=== PATIENT | female | born 1995 | race Caucasian/White ===

== ENCOUNTER → 2018-09-16 | Outpatient (REF) | payer OTHER | LOC: M SMT 13:20 | DX: N12 Tubulo-interstitial nephritis, not specified as acute or chronic (principal) | CPT/HCPCS: 87086 ==

== ENCOUNTER 2024-11-15 12:42 | Inpatient (IN) | payer MEDICAID, OTHER ==
[~2024-11-15] VITALS: Ht 157.5 cm; Wt 85.0 kg
[2024-11-15] MEDS ORDERED: ALBU8.5H INH (13:01)
[2024-11-15] MEDS ORDERED: DULO1CAP6 PO (13:01)
[2024-11-15 13:30] LABS: HEMATOCRIT 42.8 % (36.0-47.0); HEMOGLOBIN 13.8 g/dl (12.0-15.5); MEAN CORPUSCULAR HEMOGLOBIN 27.3 pg (27.0-33.0); MEAN CORPUSCULAR HGB CONC 32.2 g/dl (32.0-36.5); MEAN CORPUSCULAR VOLUME 84.6 fl (80.0-96.0); PLATELET COUNT, AUTOMATED 319 10^3/uL (150-450); RED BLOOD COUNT 5.06 10^6/uL (4.00-5.40); WHITE BLOOD COUNT 10.5 10^3/uL (4.0-10.0)
[2024-11-15 13:54] LABS: AMPHETAMINES LEVEL URINE NEGATIVE (NEGATIVE); BARBITURATES URINE NEGATIVE (NEGATIVE); BENZODIAZEPINES URINE NEGATIVE (NEGATIVE); COCAINE METABOLITE URINE NEGATIVE (NEGATIVE); METHADONE URINE NEGATIVE (NEGATIVE); OPIATES URINE NEGATIVE (NEGATIVE); PHENCYCLIDINE URINE NEGATIVE (NEGATIVE)
[2024-11-15 13:57] LABS: ETHYL ALCOHOL (ETHANOL) 0.007 % (0.000-0.010)
[2024-11-15 13:58] LABS: SALICYLATE LEVEL < 3.0 MG/DL (<30)
[2024-11-15 13:59] LABS: ALBUMIN 4.3 G/DL (3.2-5.2); ALKALINE PHOSPHATASE 81 U/L (35-104); ALT/SGPT 13 U/L (7.0-40); AST/SGOT 13 U/L (<34); BILIRUBIN,DIRECT 0.2 MG/DL (<0.4); BILIRUBIN,TOTAL 0.5 MG/DL (0.3-1.2); BLOOD UREA NITROGEN 9 MG/DL (9-23); CARBON DIOXIDE LEVEL 26 MMOL/L (20-31); CHLORIDE LEVEL 105 MMOL/L (98-107); CREATININE FOR GFR 0.74 MG/DL (0.55-1.30); GLOMERULAR FILTRATION RATE > 60.0 (>60); GLUCOSE, FASTING 148 MG/DL (60-100); POTASSIUM SERUM 3.8 MMOL/L (3.5-5.1); SODIUM LEVEL 140 MMOL/L (136-145); TOTAL PROTEIN 8.2 G/DL (5.7-8.2)
[2024-11-15 14:00] LABS: CANNABINOIDS URINE POSITIVE (NEGATIVE)
[2024-11-15] MEDS: LORazepam 1 MG TAB PO ONE (14:31)
[2024-11-15 15:00] LABS: KETONE, URINE AUTO RFX NEGATIVE (NEGATIVE); LEUKOCYTE ESTERASE UR AUTO RFX 3+ (NEGATIVE); MUCUS, URINE RFX SMALL (NEGATIVE); NITRITE, URINE AUTO RFX NEGATIVE (NEGATIVE); RBC, URINE AUTO RFX 5 /HPF (0-3); SQUAM EPITHELIAL CELL UR AURFX 1 /HPF (0-6)
[2024-11-15] MEDS ORDERED: HOME MED LIST COMPLETE! XX SCH (15:10)
[2024-11-15 16:04] LABS: BASO % 0.2 % (0.0-1.0); EOS % 0.4 % (0.0-3.0); LYMPH % 19.2 % (24.0-44.0); MONO # 0.6 10^3/uL (0.0-0.8); MONO % 5.2 % (2.0-8.0); NEUTROPHILS % 74.7 % (36.0-66.0)
[2024-11-15] MEDS: LABETALOL 100MG TAB PO ONE (16:28)
[2024-11-15] MEDS ORDERED: ACETAMINOPHEN 325 MG TAB PO PRN (17:45)
[2024-11-15] MEDS ORDERED: MAALOX 30 ML SUSP *UDC PO PRN (17:45)
[2024-11-15] MEDS ORDERED: MOM 30ML SUSPENSION UDC PO PRN (17:45)
[2024-11-15] MEDS ORDERED: IBUPROFEN 400MG TAB PO PRN (17:45)
[2024-11-15] MEDS: FOSFOMYCIN TROMETHAMINE 3 GM POWDER PACKET (MONUROL) PO ONE (18:17)
[2024-11-15 21:06] VITALS: BP 137/89; TEMP 97.8; O2SAT 98
[2024-11-16 06:33] VITALS: BP 128/90; TEMP 97.8; O2SAT 96
[2024-11-16] MEDS: NICOTINE 7 MG/24 HR TRANSDERMAL TD ONE (09:55)
[2024-11-16] MEDS: LORazepam 0.5 MG TAB PO ONE (09:55)
[2024-11-16] MEDS: CEFDINIR 300 MG CAP (OMNICEF) PO SCH (11:23)
[2024-11-16 15:16] VITALS: BP 170/118; TEMP 97.6; O2SAT 99
[2024-11-16] MEDS: DIVALPROEX 125 MG TAB PO ONE (15:38)
[2024-11-16] MEDS: LORazepam 1 MG TAB PO STA (15:38)
[2024-11-16] MEDS ORDERED: **hydrALAZINE** 10 MG TAB PO PRN (17:50)
[2024-11-16] MEDS: LOSARTAN 25 MG TAB PO SCH (18:18)
[2024-11-16 18:19] VITALS: BP 150/102
[2024-11-16] MEDS: traZODone 50 MG TAB PO PRN (20:55)
[2024-11-16 22:09] VITALS: BP 143/96
[2024-11-17 06:33] VITALS: BP 127/81; TEMP 98.5; O2SAT 99
[2024-11-17 08:50] VITALS: BP 130/88
[2024-11-17] MEDS: DIVALPROEX 250MG TAB PO SCH (08:54)
[2024-11-17] MEDS: NICOTINE 7 MG/24 HR TRANSDERMAL TD SCH (08:54)
[2024-11-17] MEDS: busPIRone 5 MG TAB PO SCH (10:54)
[2024-11-17 14:51] VITALS: BP 147/91; TEMP 98.6; O2SAT 98
[2024-11-18 06:25] VITALS: BP 130/71; TEMP 97.4; O2SAT 100
[2024-11-18] MEDS: diphenhydrAMINE 25MG CAP PO PRN (12:14)
[2024-11-18 16:01] VITALS: BP 133/80; TEMP 98; O2SAT 98
[2024-11-19 06:08] VITALS: BP 155/88; TEMP 97.7; O2SAT 100
[2024-11-19 16:20] VITALS: BP 140/90; TEMP 98; O2SAT 98
[2024-11-20 06:26] VITALS: BP 147/94; TEMP 97.4; O2SAT 100
[2024-11-20] MEDS ORDERED: DEPA250T32 PO (08:10)
[2024-11-20] MEDS ORDERED: ALBU8.5H INH (08:10)
[2024-11-20] MEDS ORDERED: HYDR-161 PO (08:10)
[2024-11-20] MEDS ORDERED: TRAZ-252 PO (08:10)
[2024-11-20] MEDS ORDERED: CEFD300CAP PO (08:10)
[2024-11-20] MEDS ORDERED: DIPH-435 PO (08:10)
[2024-11-20] MEDS ORDERED: BUSP5TA PO (08:10)
[2024-11-20] MEDS ORDERED: LOSA-527 PO (08:10)
[2024-11-20] MEDS ORDERED: NICO7PA TD (08:10)
[2024-11-20] MEDS ORDERED: HYDR5TAB PO (08:12)
[2024-11-20 08:30] VITALS: BP 140/82
[2024-11-20 08:32] VITALS: BP 140/82
== END 2024-11-20 10:42 | disposition home or self-care (01) | DRG 753 ==
LOC: M ED 12:42 → M ED INP 17:42 → M PSY 21:22
PROVIDERS: ADMIT Psychiatry & Neurology Psychiatry; ATTEND Psychiatry & Neurology Psychiatry
DX: F31.9 Bipolar disorder, unspecified (principal); Z91.148 Patient's other noncompliance with medication regimen for other reason; R45.851 Suicidal ideations; F17.200 Nicotine dependence, unspecified, uncomplicated; F17.210 Nicotine dependence, cigarettes, uncomplicated; F60.3 Borderline personality disorder; J45.20 Mild intermittent asthma, uncomplicated; F12.90 Cannabis use, unspecified, uncomplicated; Z79.899 Other long term (current) drug therapy

== ENCOUNTER → 2025-10-19 | Outpatient (CLI) | payer OTHER ==
[~2025-10-19] MED LIST: ALBU8.5H INH; BUSP5TA PO; CEFD300CAP PO; DIPH-435 PO; DIVA-65 PO; DULO1CAP6 PO; HYDR-161 PO; HYDR5TAB PO; ISOVUE-370 76% 100 ML VIAL ONE; LOSA-527 PO; NICO7PA TD; TRAZ-252 PO
== END ==
LOC: M PLAIMG 09:12
DX: R13.10 Dysphagia, unspecified (principal); C18.1 Malignant neoplasm of appendix; K59.00 Constipation, unspecified; R63.4 Abnormal weight loss; Z90.49 Acquired absence of other specified parts of digestive tract
CPT/HCPCS: 74177; Q9967